=== PATIENT | female | born 1935 | race Caucasian/White ===

== ENCOUNTER 2023-04-15 08:15 | Inpatient (IN) ==
[~2023-04-15 08:15] MED LIST: IPRATROPIUM/ALBUTEROL 3 ML AMPUL.NEB NEB PRN; SCOPOLAMINE 1 PATCH PATCH TOPICAL PRN
[2023-04-15] MEDS ORDERED: 0.9 % SODIUM CHLORIDE 250 ML IV SCH (09:00)
[2023-04-15] MEDS ORDERED: morphine 2 MG/ML VIAL IV ONE (09:34)
[2023-04-15] MEDS ORDERED: ceFAZolin 2 GM in DEXTROSE 5% IN WATER 50 ML IV SCH ×2 (13:00→15:30)
[2023-04-15] MEDS ORDERED: PHENYLephrine 1 MG/10 ML SYRINGE (ANEST) ONE (13:43)
[2023-04-15] MEDS ORDERED: TRANEXAMIC ACID 1,000 MG/10 ML VIAL ONE (13:43)
[2023-04-15] MEDS ORDERED: TRANEXAMIC ACID 1,000 MG/10 ML VIAL IV ONE (15:13)
[2023-04-15] MEDS ORDERED: MAGNESIUM HYDROXIDE 30 ML ORAL.SUSP PO PRN (15:13)
[2023-04-15] MEDS ORDERED: BISACODYL 10 MG SUPP.RECT PR PRN (15:13)
[2023-04-15] MEDS ORDERED: POLYETHYLENE GLYCOL 3350 17 GM PACKET PO PRN (15:13)
[2023-04-15] MEDS ORDERED: BENZOCAINE/MENTHOL 1 LOZENGE PO PRN (15:13)
[2023-04-15] MEDS ORDERED: FLEETS ADULT ENEMA PR PRN (15:13)
[2023-04-15] MEDS ORDERED: ACETAMINOPHEN 325 MG TABLET PO PRN (15:28)
[2023-04-15] MEDS: ONDANSETRON 4 MG/2 ML VIAL IV PRN ×2 (15:55→19:02)
[2023-04-15] MEDS ORDERED: IPRATROPIUM/ALBUTEROL 3 ML AMPUL.NEB NEB PRN (15:55)
[2023-04-15] MEDS ORDERED: ACETAMINOPHEN 1,000 MG/100 ML BAG IV ONE (15:55)
[2023-04-15] MEDS ORDERED: fentaNYL 100 MCG/2 ML VIAL IV PRN (15:55)
[2023-04-15] MEDS ORDERED: ONDANSETRON 4 MG/2 ML VIAL IV PRN (15:55)
[2023-04-15] MEDS: 0.9 % SODIUM CHLORIDE 1,000 ML IV SCH (16:51)
[2023-04-15] MEDS: morphine 4 MG/ML VIAL IV PRN ×2 (17:10→19:14)
[2023-04-15] MEDS ORDERED: SPIRONOLACTONE 25 MG TABLET PO SCH (17:20)
[2023-04-15] MEDS: CARVEDILOL 12.5 MG TABLET PO SCH (17:43)
[2023-04-15] MEDS: amLODIPine 10 MG TABLET PO SCH (17:43)
[2023-04-15 18:05] LABS: ALT/SGPT 24 U/L (<40); AST/SGOT 37 U/L (<32); Albumin 2.8 gm/dL (3.2-5.2); Alkaline Phosphatase 191 U/L (39-117); Bilirubin,Direct < 0.2 mg/dL (0-0.3); Bilirubin,Total 0.4 mg/dL (0.1-1.0); Blood Urea Nitrogen 28 mg/dL (8-23); Calcium 9.8 mg/dL (8.6-10.4); Carbon Dioxide 16 mmol/L (22-30); Chloride 105 mmol/L (96-108); Globulin 2.8 gm/dL (2.2-3.7); Glomerular Filtration Rate 37; Glucose 101 mg/dL (70-105); Lactate Dehydrogenase 247 U/L (135-225); Phosphorous 3.8 mg/dL (2.5-4.5); Triglycerides 142 mg/dL (<150); Uric Acid 6.7 mg/dL (2.5-8.0)
[2023-04-15] MEDS: HYDROcodone/APAP 5/325MG TABLET PO PRN (20:08)
[2023-04-15] MEDS ORDERED: HYDROmorphone 1 MG/ML SYRINGE IV PRN (20:34)
[2023-04-15] MEDS: ceFAZolin 1 GM VIAL IV SCH (21:54)
[2023-04-15] MEDS: DOCUSATE SODIUM 100 MG CAPSULE PO SCH (22:07)
[2023-04-15] MEDS: 0.9 % SODIUM CHLORIDE 10 ML SYRINGE IV SCH (22:07)
[2023-04-15] MEDS: SIMVASTATIN 10 MG TABLET PO SCH (22:07)
[2023-04-15] MEDS: SENNOSIDES 1 TABLET PO SCH (22:07)
[2023-04-16] MEDS: HYDROcodone/APAP 5/325MG TABLET PO PRN ×3 (02:58→12:53)
[2023-04-16] MEDS: ceFAZolin 1 GM VIAL IV SCH (05:31)
[2023-04-16 06:24] LABS: Basophils # (Auto) 0.03 K/mcL (0.00-0.30); Basophils % (Auto) 0.4 % (0.0-2.0); Eosinophils # (Auto) 0.04 K/mcL (0.00-0.70); Eosinophils % (Auto) 0.6 % (0.0-7.0); Hematocrit 29.2 % (34.1-44.9); Lymphocytes % (Auto) 8.9 % (15.5-49.0); Mean Cell Volume 99.7 fL (80.0-100.0); Mean Corpuscular HGB Conc 30.8 g/dL (31.0-36.0); Mean Platelet Volume 10.6 fL (8.8-12.5); Monocytes # (Auto) 0.78 K/mcL (0.10-0.90); Monocytes % (Auto) 11.6 % (1.0-12.0); Neutrophils % (Auto) 77.5 % (38.0-78.0); Platelet Count 303 K/mcL (140-440); RBC 2.93 M/mcL (3.59-5.38); Red Cell Distribution Width 17.5 % (11.5-14.5); WBC 6.7 K/mcL (4.5-11.0)
[2023-04-16] MEDS: 0.9 % SODIUM CHLORIDE 1,000 ML IV SCH ×3 (06:40→20:44)
[2023-04-16 07:06] LABS: Thyroid Stimulating Hormone 3.86 uIU/mL (0.27-5.01)
[2023-04-16 08:20] LABS: ALT/SGPT 15 U/L (<40); AST/SGOT 36 U/L (<32); Albumin 2.8 gm/dL (3.2-5.2); Albumin/Globulin Ratio 1.1 (1.0-2.3); Alkaline Phosphatase 180 U/L (39-117); Bilirubin,Direct < 0.2 mg/dL (0-0.3); Bilirubin,Total 0.3 mg/dL (0.1-1.0); Blood Urea Nitrogen 28 mg/dL (8-23); Calcium 9.6 mg/dL (8.6-10.4); Carbon Dioxide 16 mmol/L (22-30); Chloride 105 mmol/L (96-108); Globulin 2.6 gm/dL (2.2-3.7); Glomerular Filtration Rate 34; Glucose 94 mg/dL (70-105); Lactate Dehydrogenase 208 U/L (135-225); Phosphorous 3.7 mg/dL (2.5-4.5); Triglycerides 135 mg/dL (<150); Uric Acid 6.6 mg/dL (2.5-8.0)
[2023-04-16] MEDS: OMEPRAZOLE 20 MG CAPSULE PO SCH (08:59)
[2023-04-16] MEDS: ASPIRIN 81 MG TAB.CHEW CHEWED SCH (08:59)
[2023-04-16] MEDS: CARVEDILOL 12.5 MG TABLET PO SCH ×2 (08:59→16:31)
[2023-04-16] MEDS: 0.9 % SODIUM CHLORIDE 10 ML SYRINGE IV SCH ×2 (09:00→20:41)
[2023-04-16] MEDS: HEPARIN 5,000 UNIT/ML VIAL SQ SCH ×2 (09:00→20:41)
[2023-04-16] MEDS: amLODIPine 10 MG TABLET PO SCH (09:00)
[2023-04-16] MEDS ORDERED: ALLOPURINOL 300 MG TABLET PO SCH ×2 (09:00→10:15)
[2023-04-16] MEDS: DOCUSATE SODIUM 100 MG CAPSULE PO SCH ×2 (09:00→20:41)
[2023-04-16] MEDS ORDERED: FUROSEMIDE 20 MG TABLET PO SCH (09:00)
[2023-04-16] MEDS ORDERED: fentaNYL 12 MCG PATCH TOPICAL SCH (10:15)
[2023-04-16] MEDS: SENNOSIDES 1 TABLET PO SCH (20:41)
[2023-04-16] MEDS: SIMVASTATIN 10 MG TABLET PO SCH (20:41)
[2023-04-17] MEDS: CARVEDILOL 12.5 MG TABLET PO SCH (07:23)
[2023-04-17] MEDS: OMEPRAZOLE 20 MG CAPSULE PO SCH (07:23)
[2023-04-17] MEDS ORDERED: LEVOTHYROXINE 75 MCG TABLET PO SCH (07:30)
[2023-04-17] MEDS: ASPIRIN 81 MG TAB.CHEW CHEWED SCH (08:32)
[2023-04-17] MEDS: HEPARIN 5,000 UNIT/ML VIAL SQ SCH (08:32)
[2023-04-17] MEDS: DOCUSATE SODIUM 100 MG CAPSULE PO SCH (08:32)
[2023-04-17] MEDS ORDERED: FLUoxetine HCL 10 MG CAPSULE PO SCH (09:00)
[2023-04-17] MEDS ORDERED: amLODIPine 10 MG TABLET PO SCH (09:00)
[2023-04-17 09:48] LABS: Basophils # (Auto) 0.05 K/mcL (0.00-0.30); Basophils % (Auto) 0.7 % (0.0-2.0); Eosinophils % (Auto) 1.3 % (0.0-7.0); Hematocrit 29.1 % (34.1-44.9); Hemoglobin 8.7 g/dL (11.2-15.7); Mean Cell Volume 101.4 fL (80.0-100.0); Mean Corpuscular HGB Conc 29.9 g/dL (31.0-36.0); Monocytes % (Auto) 10.7 % (1.0-12.0); Neutrophils % (Auto) 77.6 % (38.0-78.0); Platelet Count 331 K/mcL (140-440); RBC 2.87 M/mcL (3.59-5.38); Red Cell Distribution Width 17.7 % (11.5-14.5); WBC 7.5 K/mcL (4.5-11.0)
[2023-04-17 10:12] LABS: ALT/SGPT < 5 U/L (<40); AST/SGOT 24 U/L (<32); Albumin 2.6 gm/dL (3.2-5.2); Albumin/Globulin Ratio 0.9 (1.0-2.3); Alkaline Phosphatase 183 U/L (39-117); Bilirubin,Direct < 0.2 mg/dL (0-0.3); Bilirubin,Total 0.4 mg/dL (0.1-1.0); Blood Urea Nitrogen 27 mg/dL (8-23); Calcium 9.7 mg/dL (8.6-10.4); Carbon Dioxide 17 mmol/L (22-30); Chloride 109 mmol/L (96-108); Globulin 2.8 gm/dL (2.2-3.7); Glomerular Filtration Rate 45; Glucose 90 mg/dL (70-105); Lactate Dehydrogenase 176 U/L (135-225); Phosphorous 2.6 mg/dL (2.5-4.5); Triglycerides 150 mg/dL (<150); Uric Acid 5.8 mg/dL (2.5-8.0)
[2023-04-17] MEDS: 0.9 % SODIUM CHLORIDE 10 ML SYRINGE IV SCH (10:30)
[2023-04-17] MEDS: 0.9 % SODIUM CHLORIDE 1,000 ML IV SCH (10:30)
[2023-04-17] MEDS ORDERED: PROPOFOL 200 MG/20 ML VIAL IV ONE (15:18)
[2023-04-18] MEDS ORDERED: ALLOPURINOL 300 MG TABLET PO SCH (09:00)
== END 2023-04-17 15:19 | DRG 481 ==
LOC: SUR 08:15 → MEDSUR 08:16
PROVIDERS: ADMIT Orthopaedic Surgery; ATTEND Internal Medicine